=== PATIENT | female | born 2000 | race Caucasian/White ===

== ENCOUNTER 2022-08-05 03:06 | Inpatient (IN) ==
[2022-08-05 03:53] LABS: Appearance Urine Cloudy (Clear); Bacteria Urine Automated 2+ (Negative); Bilirubin Urine Negative (Negative); Blood Urine Negative (Negative); Color Urine Yellow; Epithelial Cell Urine Auto >30 /lpf (0-5); Glucose Urine UA Negative (Negative); Ketones Urine Negative (Negative); Leukocyte Esterase Urine 2+ (Negative); Nitrite Urine Negative (Negative); RBC Urine Automated 0-4 /hpf (0-4); Specific Gravity Urine 1.024 (1.000-1.030); Urobilinogen Urine Negative (Negative)
[2022-08-05 03:54] LABS: Protein Urine Trace (Negative)
[2022-08-05 04:12] LABS: Amphetamines+Metham, Urine Neg (Neg); Barbiturates, Urine Neg (Neg); Benzodiazepine, Urine Neg (Neg); Cocaine, Urine Neg (Neg); MDMA (Ecstacy), Urine Neg (Neg); Methadone, Urine Neg (Neg); Opiate, Urine Neg (Neg); Phencyclidine, Urine Neg (Neg)
[2022-08-05 04:21] LABS: Basophils # (auto) 0.02 K/uL (0-0.2); Basophils % (auto) 0.3 %; Eosinophils # (auto) 0.01 K/uL (0-0.50); Eosinophils % (auto) 0.1 %; Hemoglobin 12.8 g/dl (12.0-16.0); Immature Granulocytes # (auto) 0.02 K/uL (0.01-0.20); Immature Granulocytes % (auto) 0.3 %; Lymphocytes # (auto) 1.74 K/uL (1.2-3.4); Lymphocytes % (auto) 22.3 %; Mean Corpuscular Hgb Conc 34.6 g/dL (32.0-36.0); Mean Corpuscular Volume 89.6 fL (80.0-100.0); Mean Platelet Volume 9.4 fL (9.4-12.4); Monocytes # (auto) 0.42 K/uL (0.11-0.59); Monocytes % (auto) 5.4 %; Neutrophils # (auto) 5.58 K/uL (1.40-6.50); Neutrophils % (auto) 71.6 %; Platelet Count 308 K/uL (130-400); RDW Coefficient of Variation 12.3 % (11.5-14.5); RDW Standard Deviation 40.1 fL (36.4-46.3); Red Blood Count 4.13 M/uL (4.20-5.40); White Blood Count 7.79 K/ul (4.8-10.8)
[2022-08-05 04:25] LABS: Pregnancy Test, Urine Negative (Negative)
[2022-08-05 04:37] LABS: Albumin Level 4.4 gm/dl (3.4-5.0); Bilirubin,Total 0.3 mg/dl (0.2-1.0); Calcium 9.5 mg/dl (8.5-10.1); Potassium 3.7 mmol/L (3.5-5.1)
[2022-08-05 04:43] LABS: Albumin Globulin Ratio 1.2 (0.9-2); BUN Creatinine Ratio 19.1 (10-20); Creatinine Clr Calc Pharmacy 83.4 ml/min; Est GFR (African American) 108.1 ml/min; Est GFR (Non-African American) 93.3 ml/min; Globulin 3.8 gm/dl (2.5-4.0); Total Protein 8.2 gm/dl (6.0-8.3)
[2022-08-05 04:46] LABS: Acetaminophen < 3 ug/ml (10-30); Salicylate < 3.0 mg/dl (3.0-30)
[2022-08-05 04:56] LABS: Thyroid Stimulating Hormone 5.831 uIu/ml (0.300-4.500)
[2022-08-05 06:04] LABS: T4 Free Thyroxine 0.63 ng/dl (0.61-1.60)
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
--- NOTE | 2022-08-05 10:10 | Emergency Department Note ---
ED Visit Note ED Physician Sign Out Note: 21-year-old female arrives for evaluation of severe depression. Patient with suicidal ideation. Family is in [place]. She is here on a 201 voluntary basis for psychiatric placement. Medically evaluated and cleared by Dr Wells pending placement. Patient was excepted to [facility] on a voluntary basis no issues throughout the morning. Herberth Eldridge MD
[2022-08-05] MEDS ORDERED: BISMUTH SUBSALICYLATE LIQD 236 ML PO PRN (12:49)
[2022-08-05] MEDS ORDERED: SODIUM CHLORIDE 0.65% NA SOLN 45 ML (OCEAN) PRN (12:49)
[2022-08-05] MEDS ORDERED: ACETAMINOPHEN 325 MG TAB PO PRN (12:49)
[2022-08-05] MEDS ORDERED: MAGNESIUM HYDROXIDE SUSP 30 ML UDC PO PRN (12:49)
[2022-08-05] MEDS ORDERED: ALUMINUM/MAGNESIUM SUSP 30 ML UDC PO PRN (12:49)
[2022-08-05] MEDS ORDERED: hydrOXYzine HCl 25 MG TAB PO PRN ×2 (12:49)
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
[2022-08-05] MEDS ORDERED: FLUARIX QUADRIVALENT 0.5 ML SYR IM ONE (13:39)
[2022-08-05] MEDS: lamoTRIgine 100 MG TAB PO SCH ×2 (15:20→21:45)
[2022-08-05] MEDS: VENLAFAXINE HCL XR 150 MG CAPXR PO SCH (15:21)
[2022-08-05] MEDS: VENLAFAXINE HCL XR 75 MG CAPXR PO SCH (15:22)
[2022-08-05] MEDS: MIRTAZAPINE TAB 15 MG TAB PO SCH (21:43)
[2022-08-05] MEDS: PATIENT'S OWN ORAL CONTRACEPTIVE PO SCH (21:46)
--- NOTE | 2022-08-06 07:58 | Psychiatric Progress Note ---
Date of Service August 06, 2022 Impression / Recommendations Impression 08/06/22: Reviewed labs with pt. She appears to have evidence of UTI on UA and TSH is elevated with barely-normal T4. She reports much better sleep last night. On extended interview, reports clear manic episodes with extended periods of little sleep, frantic activity with racing thoughts, poor judgment, hypersexuality. She endorsed every item but 1 on MDQ. She reports failed trials of SSRI's and while she doesn't see any benefit on venlafaxine in terms of mood, she does think it's helped a lot with anxiety. She's somewhat phobic about possibility of becoming nauseated on medication though she doesn't recall this actually happening. She's happy with mirtazapine with sleep thus far and would like to continue venlafaxine. At this point I think history points toward Bipolar I d/o rather than Bipolar II , but in either case depressed mood would not likely respond well to antidepressant and would require a mood stabilizer. She's been tolerating lamotrigine without side effects but attributes no benefit to it. 08/05/22: The patient is a 21 year old woman and [employer] student with a history of BPAD type II, PTSD, self-harm, anxiety and PMDD who was admitted for worsening depression, anxiety and SI with potential plans. Diagnostically consistent with unspecified depression-most likely BPAD II with current major depressive episode with contribution from PMDD, NELLA with panic attacks, and PTSD. Possible cluster B component. TSH elevated but normal T4, no current suggestion for hypothyroidism component but should be monitored with likely TSH/free T4 recheck in the next 6-8 weeks. She is deemed in need of psychiatric hospitalization for diagnostic clarification, safety and stabilization, medication management and development of further coping skills. Discussed medication treatment options in detail including prazosin, mirtazapine, SNRIs/SSRIs. Discussed risks, benefits and alternatives. Patient would like to start and consented to mirtazapine for augmentation of depression, anxiety, help with sleep and appetite. Reviewed side effects including but not limited to:sedation, increased appetite, weight gain with mirtazapine; GI, STINSON, increased BP, sexual side effects, and counseled on black box warning of potential for emergence of or increased SI and need to let staff know should this occur or should they feel unsafe with venlafaxine; potential for fatal rash/Huynh Chance with lamictal and importance of reducing dose and not restarting until speaking with a provider if misses more than 3 days. (1) PMDD (premenstrual dysphoric disorder): (2) Generalized anxiety disorder with panic attacks: (3) Post traumatic stress disorder (PTSD): (4) Self-harming behavior: (5) TSH elevation: (6) Bipolar 1 disorder, depressed, severe: Plan 08/06/22: Continue venlafaxine ER 225 mg and mirtazapine 7.5 mg. Increase lamotrigine to 100 mg QAM & 150 mg QHS. Plan to start UTI Abx tomorrow (to avoid confounding if pt reports nausea if 2 med changes made simultaneously). 08/05/2022: The patient was admitted to the [facility] ([facility] mental health unit) on q15 min checks (behavioral with suicide precautions) for safety. The patient will participate in group, recreational, and milieu therapies and will be offered additional individual and family sessions as clinically appropriate. -start mirtazapine 7.5mg HS -Continue venlafaxine ER 225mg -lamictal 100mg BID -Mood Disorder Questionnaire -Jimmy BPD Screen Inventory Assets Strengths: supportive relationships, willing to get treatment, good rapport with outpatient providers, trauma survivor/resilient Needs: safety and stabilization, medication adjustment, additional coping skills, increased outpatient services Suicide Risk Level Suicide Risk Level: High-Moderate (q15 min suicide checks) (severe depression with SI with plan prior to admission but feels safe in the hospital, able to safety contract and agrees to let nursing/staff know should they develop plan, intent or feel unable to remain safe.) Suicide Risk Level Comments: High-Moderate due to severe depression with SI with plan prior to admission but feels safe in the hospital, able to safety contract and agrees to let nursing/staff know should they develop plan, intent or feel unable to remain safe. Risk Factors Assessment Male: No : Yes Do You Have Access To A Gun?: No Health Problems: No Mental Health Diagnoses: Yes Substance Use Disorders: No Previous Attempt: No Family History of Suicide: No Previous Psychiatric Hospitalization: No Protective Factors Assessment Employed: No Stable Relationships: Yes Supportive Family: Yes Good Rapport with Provider: Yes Interval History Chief Complaint "OK". Review of Systems Sleep Information Total Hours of Sleep: 7 Meal Information Percent Meal Consumed - Dinner: 85 Subjective Subjective Patient was seen & assessed and interval progress reviewed with treatment team nursing and social work Physical Exam Psychiatric Orientation: alert and oriented x 3 Apperance: appropriately dressed and appropriately groomed Eye Contact: good eye contact Motor Behavior: no abnormal motor movements Speech: normal rate/rhythm/volume of speech Affect: + depressed affect, + anxious affect and + tearful affect Mood: + depressed mood and + anxious mood Thought Process: goal directed thought process Thought Content: reality based without delusions Suicidal Thoughts: denies suicidal plan (none for here in hospital) and denies suicidal intent; + reports suicidal thoughts (intermittent thoughts ) Homicidal Thoughts: denies homicidal thoughts Hallucinations: no auditory hallucinations and no visual hallucinations Cognition: recent memory grossly intact, remote memory grossly intact, attention grossly intact and language grossly intact Estimated Intelligence: consistent with education level Insight: + fair insight Judgment: + limited judgement and + fair judgement Vital Signs (Past 24 Hours) Last Vital Signs Temp 36.9 C 08/06/22 06:47 Pulse 80 08/06/22 06:47 Resp 16 08/06/22 06:47 BP 126/84 08/06/22 06:48 Pulse Ox 99 08/05/22 13:23 O2 Del Method 08/05/22 13:23 Results & Data ([facility]) Current Inpatient Medications Current Inpatient Medications: Current Inpatient Medications Acetaminophen (Acetaminophen 325 Mg Tab) 650 mg PO Q4H PRN PRN Reason: Headache or Minor Fever Stop: 09/04/22 12:48 Al Hydrox/Mg Hydrox/Simethicone (Aluminum/Magnesium Susp 30 Ml Udc) 30 ml PO Q4H PRN PRN Reason: GI Upset Stop: 09/04/22 12:48 Bismuth Subsalicylate (Bismuth Subsalicylate Liqd 236 Ml) 15 ml PO PRN PRN PRN Reason: Loose Stool Stop: 09/04/22 12:48 Hydroxyzine HCl (Hydroxyzine Hcl 25 Mg Tab) 50 mg PO HSZ PRN PRN Reason: Insomnia Stop: 09/04/22 12:48 Hydroxyzine HCl (Hydroxyzine Hcl 25 Mg Tab) 25 mg PO Q4H PRN PRN Reason: Anxiety Stop: 09/04/22 12:48 Lamotrigine (Lamotrigine 100 Mg Tab) 100 mg PO BID DEDRICK Stop: 09/04/22 13:54 Last Admin: 08/05/22 21:45 Dose: 100 mg Magnesium Hydroxide (Magnesium Hydroxide Susp 30 Ml Udc) 30 ml PO DAILY PRN PRN Reason: Constipation Stop: 09/04/22 12:48 Mirtazapine (Mirtazapine Tab 15 Mg Tab) 7.5 mg PO HS DEDRICK Stop: 09/04/22 21:59 Last Admin: 08/05/22 21:43 Dose: 7.5 mg Miscellaneous (Patient's Own Oral Contraceptive) 1 each PO HS DEDRICK Stop: 09/04/22 21:59 Last Admin: 08/05/22 21:46 Dose: 1 each Sodium Chloride (Sodium Chloride 0.65% Na Soln 45 Ml ([place])) 1 - 2 sprays NA PRN PRN PRN Reason: Nasal Dryness/Congestion Stop: 09/04/22 12:48 Venlafaxine HCl (Venlafaxine Hcl Xr 75 Mg Capxr) 75 mg PO DAILY DEDRICK Stop: 09/04/22 13:59 Last Admin: 08/05/22 15:22 Dose: 75 mg Venlafaxine HCl (Venlafaxine Hcl Xr 150 Mg Capxr) 150 mg PO DAILY DEDRICK Stop: 09/04/22 13:59 Last Admin: 08/05/22 15:21 Dose: 150 mg Mental Health & Subst Abuse Tx Psychiatrist Name of Psychiatrist: [facility]- Dr. Brooks Psychiatrist's Psychiatric Appointment Comment: telehealth Therapist Name of Therapist: BESS Singh Therapy Appointment Comment: telehealth Shield Operator Name of Shield Operator: None Post Discharge Appointments Primary Care Physician Name Of Family Doctor/PCP: [facility] Primary Care Provider Appointment Comment: [facility], [place] Contact Information Discharge Discharge Address: [address] [place] [id number]
[2022-08-06] MEDS: VENLAFAXINE HCL XR 75 MG CAPXR PO SCH (09:49)
[2022-08-06] MEDS: VENLAFAXINE HCL XR 150 MG CAPXR PO SCH (09:49)
[2022-08-06] MEDS: lamoTRIgine 100 MG TAB PO SCH ×2 (09:49→21:47)
[2022-08-06] MEDS: PATIENT'S OWN ORAL CONTRACEPTIVE PO SCH (21:30)
[2022-08-06] MEDS: MIRTAZAPINE TAB 15 MG TAB PO SCH (21:31)
[2022-08-06] MEDS: lamoTRIgine 25 MG TAB PO SCH (21:43)
[2022-08-07] MEDS: lamoTRIgine 100 MG TAB PO SCH ×2 (08:59→21:59)
[2022-08-07] MEDS: VENLAFAXINE HCL XR 75 MG CAPXR PO SCH (08:59)
[2022-08-07] MEDS: VENLAFAXINE HCL XR 150 MG CAPXR PO SCH (08:59)
[2022-08-07] MEDS ORDERED: lamoTRIgine 100 MG TAB PO SCH (09:00)
--- NOTE | 2022-08-07 12:50 | Psychiatric Progress Note ---
Date of Service August 07, 2022 Impression / Recommendations Impression 08/07/22: Has remained pleasant and appropriate and participated well in the program. Experienced no nausea (which she'd feared) following yesterday's increase in lamotrigine and would like to proceed with planned antibiotic for presumptive UTI. Affect remains depressed and she continues to endorse depressed mood but evidences motivation for treatment. Worries that "the Remeron might have stopped working" (after 2 doses) because she slept less well last night (which is confirmed by nursing observations). 08/06/22: Reviewed labs with pt. She appears to have evidence of UTI on UA and TSH is elevated with barely-normal T4. She reports much better sleep last night. On extended interview, reports clear manic episodes with extended periods of little sleep, frantic activity with racing thoughts, poor judgment, hypersexuality. She endorsed every item but 1 on MDQ. She reports failed trials of SSRI's and while she doesn't see any benefit on venlafaxine in terms of mood, she does think it's helped a lot with anxiety. She's somewhat phobic about possibility of becoming nauseated on medication though she doesn't recall this actually happening. She's happy with mirtazapine with sleep thus far and would like to continue venlafaxine. At this point I think history points toward Bipolar I d/o rather than Bipolar II, but in either case depressed mood would not likely respond well to antidepressant and would require a mood stabilizer. She's been tolerating lamotrigine without side effects but attributes no benefit to it. 08/05/22: The patient is a 21 year old woman and [employer] student with a history of BPAD type II, PTSD, self-harm, anxiety and PMDD who was admitted for worsening depression, anxiety and SI with potential plans. Diagnostically consistent with unspecified depression-most likely BPAD II with current major depressive episode with contribution from PMDD, NELLA with panic attacks, and PTSD. Possible cluster B component. TSH elevated but normal T4, no current suggestion for hypothyroid ism component but should be monitored with likely TSH/free T4 recheck in the next 6-8 weeks. She is deemed in need of psychiatric hospitalization for diagnostic clarification, safety and stabilization, medication management and development of further coping skills. Discussed medication treatment options in detail including prazosin, mirtazapine, SNRIs/SSRIs. Discussed risks, benefits and alternatives. Patient would like to start and consented to mirtazapine for augmentation of depression, anxiety, help with sleep and appetite. Reviewed side effects including but not limited to:sedation, increased appetite, weight gain with mirtazapine; GI, STINSON, increased BP, sexual side effects, and counseled on black box warning of potential for emergence of or increased SI and need to let staff know should this occur or should they feel unsafe with venlafaxine; potential for fatal rash/Huynh Chance with lamictal and importance of reducing dose and not restarting until speaking with a provider if misses more than 3 days. (1) PMDD (premenstrual dysphoric disorder): (2) Generalized anxiety disorder with panic attacks: (3) Post traumatic stress disorder (PTSD): (4) Self-harming behavior: (5) TSH elevation: (6) Bipolar 1 disorder, depressed, severe: Plan 08/07/22: Start SMX/TMP as planned for presumptive UTI. Will continue mirtaza pine at current dose since I doubt tachyphylaxis after 2 doses. Continue lamotrigine at new dose of 100 mg QAM & 150 mg QPM, encourage further increase to 150 mg BID. Continue venlafaxine XR 225 mg daily. 08/06/22: Continue venlafaxine ER 225 mg and mirtazapine 7.5 mg. Increase lamotrigine to 100 mg QAM & 150 mg QHS. Plan to start UTI Abx tomorrow (to avoid confounding if pt reports nausea if 2 med changes made simultaneously). 08/05/2022: The patient was admitted to the [facility] ([facility] mental health unit) on q15 min checks (behavioral with suicide precautions) for safety. The patient will participate in group, recreational, and milieu therapies and will be offered additional individual and family sessions as clinically appropriate. -start mirtazapine 7.5mg HS -Continue venlafaxine ER 225mg -lamictal 100mg BID -Mood Disorder Questionnaire -Jimmy BPD Screen Inventory Assets Strengths: supportive relationships, willing to get treatment, good rapport with outpatient providers, trauma survivor/resilient Needs: safety and stabilization, medication adjustment, additional coping skills, increased outpatient services Suicide Risk Level Suicide Risk Level: High-Moderate (q15 min suicide checks) (severe depression with SI with plan prior to admission but feels safe in the hospital, able to safety contract and agrees to let nursing/staff know should they develop plan, intent or feel unable to remain safe.) Suicide Risk Level Comments: High-Moderate due to severe depression with SI with plan prior to admission but feels safe in the hospital, able to safety contract and agrees to let nursing/staff know should they develop plan, intent or feel unable to remain safe. Risk Factors Assessment Male: No : Yes Do You Have Access To A Gun?: No Health Problems: No Mental Health Diagnoses: Yes Substance Use Disorders: No Previous Attempt: No Family History of Suicide: No Previous Psychiatric Hospitalization: No Protective Factors Assessment Employed: No Stable Relationships: Yes Supportive Family: Yes Good Rapport with Provider: Yes Interval History Chief Complaint "OK I guess". Review of Systems Sleep Information Total Hours of Sleep: 5 Meal Information Percent Meal Consumed - Breakfast: 80 Percent Meal Consumed - Lunch: 75 Percent Meal Consumed - Dinner: 75 Subjective Subjective Patient was seen & assessed and interval progress reviewed with treatment team nursing and social work Physical Exam Psychiatric Orientation: alert and oriented x 3 Apperance: appropriately dressed and appropriately groomed Eye Contact: good eye contact Motor Behavior: no abnormal motor movements Speech: normal rate/rhythm/volume of speech Affect: + depressed affect and + anxious affect; no tearful affect Mood: + depressed mood and + anxious mood Thought Process: goal directed thought process Thought Content: reality based without delusions Suicidal Thoughts: denies suicidal plan (none for here in hospital) and denies suicidal intent; + reports suicidal thoughts (intermittent thoughts ) Homicidal Thoughts: denies homicidal thoughts Hallucinations: no auditory hallucinations and no visual hallucinations Cognition: recent memory grossly intact, remote memory grossly intact, attention grossly intact and language grossly intact Estimated Intelligence: consistent with education level Insight: + fair insight Judgment: + limited judgement and + fair judgement Vital Signs (Past 24 Hours) Last Vital Signs Temp 37.1 C 08/07/22 06:24 Pulse 97 H 08/07/22 06:25 Resp 18 08/07/22 06:24 BP 111/77 08/07/22 06:25 Pulse Ox 99 08/05/22 13:23 O2 Del Method 08/05/22 13:23 Results & Data ([facility]) Current Inpatient Medications Current Inpatient Medications: Current Inpatient Medications Acetaminophen (Acetaminophen 325 Mg Tab) 650 mg PO Q4H PRN PRN Reason: Headache or Minor Fever Stop: 09/04/22 12:48 Al Hydrox/Mg Hydrox/Simethicone (Aluminum/Magnesium Susp 30 Ml Udc) 30 ml PO Q4H PRN PRN Reason: GI Upset Stop: 09/04/22 12:48 Bismuth Subsalicylate (Bismuth Subsalicylate Liqd 236 Ml) 15 ml PO PRN PRN PRN Reason: Loose Stool Stop: 09/04/22 12:48 Hydroxyzine HCl (Hydroxyzine Hcl 25 Mg Tab) 50 mg PO HSZ PRN PRN Reason: Insomnia Stop: 09/04/22 12:48 Hydroxyzine HCl (Hydroxyzine Hcl 25 Mg Tab) 25 mg PO Q4H PRN PRN Reason: Anxiety Stop: 09/04/22 12:48 Lamotrigine (Lamotrigine 100 Mg Tab) 100 mg PO BID DEDRICK Stop: 09/05/22 20:59 Last Admin: 08/07/22 08:59 Dose: 100 mg Lamotrigine (Lamotrigine 25 Mg Tab) 50 mg PO HS DEDRICK Stop: 09/05/22 21:59 Last Admin: 08/06/22 21:43 Dose: 50 mg Magnesium Hydroxide (Magnesium Hydroxide Susp 30 Ml Udc) 30 ml PO DAILY PRN PRN Reason: Constipation Stop: 09/04/22 12:48 Mirtazapine (Mirtazapine Tab 15 Mg Tab) 7.5 mg PO HS DEDRICK Stop: 09/04/22 21:59 Last Admin: 08/06/22 21:31 Dose: 7.5 mg Miscellaneous (Patient's Own Oral Contraceptive) 1 each PO HS DEDRICK Stop: 09/04/22 21:59 Last Admin: 08/06/22 21:30 Dose: 1 each Sodium Chloride (Sodium Chloride 0.65% Na Soln 45 Ml ([place])) 1 - 2 sprays NA PRN PRN PRN Reason: Nasal Dryness/Congestion Stop: 09/04/22 12:48 Venlafaxine HCl (Venlafaxine Hcl Xr 75 Mg Capxr) 75 mg PO DAILY DEDRICK Stop: 09/04/22 13:59 Last Admin: 08/07/22 08:59 Dose: 75 mg Venlafaxine HCl (Venlafaxine Hcl Xr 150 Mg Capxr) 150 mg PO DAILY DEDRICK Stop: 09/04/22 13:59 Last Admin: 08/07/22 08:59 Dose: 150 mg Mental Health & Subst Abuse Tx Psychiatrist Name of Psychiatrist: [facility]- Dr. Brooks Psychiatrist's Psychiatric Appointment Comment: telehealth Therapist Name of Therapist: BESS Singh Therapy Appointment Comment: telehealth Medical Billing Representative Name of Medical Billing Representative: None Post Discharge Appointments Primary Care Physician Name Of Family Doctor/PCP: [facility] Primary Care Provider Appointment Comment: [facility], [place], [place] Other #1: Name of Aftercare Appointment: [facility] Phone Number of Aftercare Appointment: [phone] Aftercare Appointment Comment: zoom link will be sent to [employer] email #2: Name of Aftercare Appointment: [facility] Phone Number of Aftercare Appointment: [phone] Aftercare Appointment Comment: telehealth Contact Information Discharge Discharge Address: [facility] [place] [address]
[2022-08-07] MEDS: SULFAMETHOXAZOLE/TRIMETHOPRIM DS 800/160MG TAB PO SCH (20:42)
[2022-08-07] MEDS: lamoTRIgine 25 MG TAB PO SCH (22:00)
[2022-08-07] MEDS: MIRTAZAPINE TAB 15 MG TAB PO SCH (22:00)
[2022-08-07] MEDS: PATIENT'S OWN ORAL CONTRACEPTIVE PO SCH (22:00)
--- NOTE | 2022-08-08 08:05 | Psychiatric Progress Note ---
Date of Service August 08, 2022 Impression / Recommendations Impression 08/08/22: No longer reports or endorses suicidal thoughts, but does continue to report significant depressed mood. Continues to tolerate increased lamotrigine and would like to proceed with increase to (my originally-recommended) 300 mg/day. Tolerated initiation of sulfamethoxizole/trimethoprim. Slept better last night, no longer fears mirtazapine won't help. Her parents have indicated an intention of coming to the area and staying nearby for a while. Pt is somewhat hesitant about this - she appreciates the concern and values the help offered, but is concerned about the potential for their being intrusive or controlling. She would prefer to spend more time immediately following discharge with her boyfriend than with them, though she notes that her parents like her boyfriend. Pt wishes to consider discharge tomorrow, one explicit factor being is that it's Baeza's Day. I noted that we're actively adjusting medications and that her symptoms at admission were quite severe. Since the Baeza's issue is really that her boyfriend wanted to know if he should schedule work tomorrow, I suggested that she should tell him to plan to work. Depending on how family and discharge planning meetings go and contingent on no new or worsened problems, we could consider discharge the day after tomorrow. 08/07/22: Has remained pleasant and appropriate and participated well in the program. Experienced no nausea (which she'd feared) following yesterday's increase in lamotrigine and would like to proceed with planned antibiotic for presumptive UTI. Affect remains depressed and she continues to endorse depressed mood but evidences motivation for treatment. Worries that "the Remeron might have stopped working" (after 2 doses) because she slept less well last night (which is confirmed by nursing observations). 08/06/22: Reviewed labs with pt. She appears to have evidence of UTI on UA and TSH is elevated with barely-normal T4. She reports much better sleep last night. On extended interview, reports clear manic episodes with extended periods of little sleep, frantic activity with racing thoughts, poor judgment, hypersexuality. She endorsed every item but 1 on MDQ. She reports failed trials of SSRI's and while she doesn't see any benefit on venlafaxine in terms of mood, she does think it's helped a lot with anxiety. She's somewhat phobic about possibility of becoming nauseated on medication though she doesn't recall this actually happening. She's happy with mirtazapine with sleep thus far and would like to continue venlafaxine. At this point I think history points toward Bipolar I d/o rather than Bipolar II, but in either case depressed mood would not likely respond well to antidepressant and would require a mood stabilizer. She's been tolerating lamotrigine without side effects but attributes no benefit to it. 08/05/22: The patient is a 21 year old woman and [employer] student with a history of BPAD type II, PTSD, self-harm, anxiety and PMDD who was admitted for worsening depression, anxiety and SI with potential plans. Diagnostically consistent with unspecified depression-most likely BPAD II with current major depressive episode with contribution from PMDD, NELLA with panic attacks, and PTSD. Possible cluster B component. TSH elevated but normal T4, no current suggestion for hypothyroidism component but should be monitored with likely TSH/free T4 recheck in the next 6-8 weeks. She is deemed in need of psychiatric hospitalization for diagnostic clarification, safety and stabilization, medication management and development of further coping skills. Discussed medication treatment options in detail including prazosin, mirtazapine, SNRIs/SSRIs. Discussed risks, benefits and alternatives. Patient would like to start and consented to mirtazapine for augmentation of depression, anxiety, help with sleep and appetite. Reviewed side effects including but not limited to:sedation, increased appetite, weight gain with mirtazapine; GI, STINSON, increased BP, sexual side effects, and counseled on black box warning of potential for emergence of or increased SI and need to let staff know should this occur or should they feel unsafe with venlafaxine; potential for fatal ra sh/Huynh Chance with lamictal and importance of reducing dose and not restarting until speaking with a provider if misses more than 3 days. (1) PMDD (premenstrual dysphoric disorder): (2) Generalized anxiety disorder with panic attacks: (3) Post traumatic stress disorder (PTSD): (4) Self-harming behavior: (5) TSH elevation: (6) Bipolar 1 disorder, depressed, severe: Plan 08/08/22: Increase lamotrigine to 150 mg BID, with 50 mg now following 100 mg dose administered a short time ago. (While this could appear to be a very rapid rate of increase, my initial recommendation had been to increase from 200 mg/day to 300 mg/day 2 days ago). Continue venlafaxine XR 225 mg daily (primarily for anxiety and panic). Continue mirtazapine 7.5 mg QHS (primarily for sleep). Continue sulfamethoxizole/trimethoprim 800/160 mg BID for 4 more days. 08/07/22: Start SMX/TMP as planned for presumptive UTI. Will continue mirtazapine at current dose since I doubt tachyphylaxis after 2 doses. Continue lamotrigine at new dose of 100 mg QAM & 150 mg QPM, encourage further increase to 150 mg BID. Continue venlafaxine XR 225 mg daily. 08/06/22: Continue venlafaxine ER 225 mg and mirtazapine 7.5 mg. Increase lamotrigine to 100 mg QAM & 150 mg QHS. Plan to start UTI Abx tomorrow (to avoid confounding if pt reports nausea if 2 med changes made simultaneously). 08/05/2022: The patient was admitted to the [facility] ([facility]) on q15 min checks (behavioral with suicide precautions) for safety. The patient will participate in group, recreational, and milieu therapies and will be offered additional individual and family sessions as clinically appropriate. -start mirtazapine 7.5mg HS -Continue venlafaxine ER 225mg -lamictal 100mg BID -Mood Disorder Questionnaire -Jimmy BPD Screen Inventory Assets Strengths: supportive relationships, willing to get treatment, good rapport with outpatient providers, trauma survivor/resilient Needs: safety and stabilization, medication adjustment, additional coping skills, increased outpatient services Suicide Risk Level Suicide Risk Level: High-Moderate (q15 min suicide checks) (severe depression with SI with plan prior to admission but feels safe in the hospital, able to safety contract and agrees to let nursing/staff know should they develop plan, intent or feel unable to remain safe.) Suicide Risk Level Comments: High-Moderate due to severe depression with SI with plan prior to admission but feels safe in the hospital, able to safety contract and agrees to let nursing/staff know should they develop plan, intent or feel unable to remain safe. Risk Factors Assessment Male: No : Yes Do You Have Access To A Gun?: No Health Problems: No Mental Health Diagnoses: Yes Substance Use Disorders: No Previous Attempt: No Family History of Suicide: No Previous Psychiatric Hospitalization: No Protective Factors Assessment Employed: No Stable Relationships: Yes Supportive Family: Yes Good Rapport with Provider: Yes Interval History Identifying Information 21 y/o F admitted with depressed mood and suicidal thoughts and a history of probably manic episodes (or certainly at least hypomania) Chief Complaint "Getting tired of being here". Review of Systems Sleep Information Total Hours of Sleep: 6.5 Meal Information Percent Meal Consumed - Breakfast: 80 Percent Meal Consumed - Lunch: 100 Percent Meal Consumed - Dinner: 80 Nutrition Comment: per nursing documentation Subjective Subjective Patient was seen & assessed and interval progress reviewed with treatment team nursing and social work Physical Exam Psychiatric Orientation: alert and oriented x 3 Apperance: appropriately dressed and appropriately groomed Eye Contact: good eye contact Motor Behavior: no abnormal motor movements Speech: normal rate/rhythm/volume of speech Affect: + depressed affect and + anxious affect; no tearful affect Mood: + depressed mood and + anxious mood Thought Process: goal directed thought process Thought Content: reality based without delusions Suicidal Thoughts: denies suicidal thoughts, denies suicidal plan and denies suicidal intent Homicidal Thoughts: denies homicidal thoughts Hallucinations: no auditory hallucinations and no visual hallucinations Cognition: recent memory grossly intact, remote memory grossly intact, attention grossly intact and language grossly intact Estimated Intelligence: consistent with education level Insight: + fair insight Judgment: + fair judgement Vital Signs (Past 24 Hours) Last Vital Signs Temp 37.1 C 08/08/22 06:24 Pulse 111 H 08/08/22 06:26 Resp 16 08/08/22 06:24 BP 122/79 08/08/22 06:26 Pulse Ox 99 08/05/22 13:23 O2 Del Method 08/05/22 13:23 Results & Data ([facility]) Current Inpatient Medications Current Inpatient Medications: Current Inpatient Medications Acetaminophen (Acetaminophen 325 Mg Tab) 650 mg PO Q4H PRN PRN Reason: Headache or Minor Fever Stop: 09/04/22 12:48 Al Hydrox/Mg Hydrox/Simethicone (Aluminum/Magnesium Susp 30 Ml Udc) 30 ml PO Q4H PRN PRN Reason: GI Upset Stop: 09/04/22 12:48 Bismuth Subsalicylate (Bismuth Subsalicylate Liqd 236 Ml) 15 ml PO PRN PRN PRN Reason: Loose Stool Stop: 09/04/22 12:48 Hydroxyzine HCl (Hydroxyzine Hcl 25 Mg Tab) 50 mg PO HSZ PRN PRN Reason: Insomnia Stop: 09/04/22 12:48 Hydroxyzine HCl (Hydroxyzine Hcl 25 Mg Tab) 25 mg PO Q4H PRN PRN Reason: Anxiety Stop: 09/04/22 12:48 Lamotrigine (Lamotrigine 100 Mg Tab) 100 mg PO BID DEDRICK Stop: 09/05/22 20:59 Last Admin: 08/07/22 21:59 Dose: 100 mg Lamotrigine (Lamotrigine 25 Mg Tab) 50 mg PO HS DEDRICK Stop: 09/05/22 21:59 Last Admin: 08/07/22 22:00 Dose: 50 mg Magnesium Hydroxide (Magnesium Hydroxide Susp 30 Ml Udc) 30 ml PO DAILY PRN PRN Reason: Constipation Stop: 09/04/22 12:48 Mirtazapine (Mirtazapine Tab 15 Mg Tab) 7.5 mg PO HS DEDRICK Stop: 09/04/22 21:59 Last Admin: 08/07/22 22:00 Dose: 7.5 mg Miscellaneous (Patient's Own Oral Contraceptive) 1 each PO HS DEDRICK Stop: 09/04/22 21:59 Last Admin: 08/07/22 22:00 Dose: 1 each Sodium Chloride (Sodium Chloride 0.65% Na Soln 45 Ml ([place])) 1 - 2 sprays NA PRN PRN PRN Reason: Nasal Dryness/Congestion Stop: 09/04/22 12:48 Trimethoprim/Sulfamethoxazole (Sulfamethoxazole/Trimethoprim Ds 800/160mg Tab) 1 tab PO Q12 DEDRICK Stop: 08/12/22 20:59 Last Admin: 08/07/22 20:42 Dose: 1 tab Venlafaxine HCl (Venlafaxine Hcl Xr 75 Mg Capxr) 75 mg PO DAILY DEDRICK Stop: 09/04/22 13:59 Last Admin: 08/07/22 08:59 Dose: 75 mg Venlafaxine HCl (Venlafaxine Hcl Xr 150 Mg Capxr) 150 mg PO DAILY DEDRICK Stop: 09/04/22 13:59 Last Admin: 08/07/22 08:59 Dose: 150 mg Mental Health & Subst Abuse Tx Psychiatrist Name of Psychiatrist: [facility]- Dr. Brooks Psychiatrist's Psychiatric Appointment Comment: telehealth Therapist Name of Therapist: BESS Singh Therapist's Date of Therapist Appointment: 08/10/2022 Time of Therapist Appointment: 4pm Therapy Appointment Comment: telehealth Premium Note Interest Calculator Clerk Name of Premium Note Interest Calculator Clerk: None Post Discharge Appointments Primary Care Physician Name Of Family Doctor/PCP: JAMES- Gynocology Primary Care Provider Appointment Comment: [id number] [place] [address] Other #1: Name of Aftercare Appointment: [facility] Phone Number of Aftercare Appointment: [phone] Aftercare Appointment Comment: zoom link will be sent to [employer] email #2: Name of Aftercare Appointment: [facility] Phone Number of Aftercare Appointment: [phone] Aftercare Appointment Comment: telehealth Contact Information Discharge Discharge Address: [address] [place] [address], [place] [address]
[2022-08-08] MEDS: lamoTRIgine 100 MG TAB PO SCH (08:34)
[2022-08-08] MEDS: VENLAFAXINE HCL XR 75 MG CAPXR PO SCH (08:35)
[2022-08-08] MEDS: VENLAFAXINE HCL XR 150 MG CAPXR PO SCH (08:35)
[2022-08-08] MEDS: SULFAMETHOXAZOLE/TRIMETHOPRIM DS 800/160MG TAB PO SCH ×2 (08:35→21:22)
[2022-08-08] MEDS ORDERED: lamoTRIgine 25 MG TAB PO ONE (11:01)
[2022-08-08] MEDS: PATIENT'S OWN ORAL CONTRACEPTIVE PO SCH (21:21)
[2022-08-08] MEDS: MIRTAZAPINE TAB 15 MG TAB PO SCH (21:22)
[2022-08-08] MEDS: lamoTRIgine 25 MG TAB PO SCH (21:23)
--- NOTE | 2022-08-09 09:20 | Psychiatric Progress Note ---
Date of Service August 09, 2022 Impression / Recommendations Impression 08/09/22: Despite extensive discussion of the possibility of discharge tomorrow (see note 08/08/22), over the course of the day yesterday voiced to others that the plan was for discharge today. Each time she was reminded of the plan for possible discharge tomorrow. Today, pt repeats this with me and insists she's currently symptom-free. I shared my doubts that her medication works that quickly and suggested that much of the reason she's felt better is likely the milieu on the unit, which of course will no longer be available following discharge. She does appear to have tolerated recent medication changes, including 50% increase in lamotrigine dose from 100 mg BID to 150 mg BID (3 doses thus far) and addition of SMX/TMP to her existing venlafaxine XR 225 mg daily. Reviewed that the lamotrigine is the med she's taking for depression, since it seems clear it's bipolar depression and therefore unlikely to respond to antidepressants. Reviewed that the venlafaxine XR, despite typically being referred to as an antidepressant is in her case for generalized anxiety, panic, and PTSD symptoms. I've told pt that I'd really like to ensure she tolerates lamotrigine 300 mg/day for at least 2 days prior to discharge and that that criterion could be met if she were discharged a couple of hours after this evening's dose. She voiced that discharge that late seemed a bit silly, to which I agreed. 08/08/22: No longer reports or endorses suicidal thoughts, but does continue to report significant depressed mood. Continues to tolerate increased lamotrigine and would like to proceed with increase to (my originally-recommended) 300 mg/day. Tolerated initiation of sulfamethoxizole/trimethoprim. Slept better last night, no longer fears mirtazapine won't help. Her parents have indicated an intention of coming to the area and staying nearby for a while. Pt is somewhat hesitant about this - she appreciates the concern and values the help offered, but is concerned about the potential for their being intrusive or controlling. She would prefer to spend more time immediately following discharge with her boyfriend than with them, though she notes that her parents like her boyfriend. Pt wishes to consider discharge tomorrow, one explicit factor being is that it's Felisha's Day. I noted that we're actively adjusting medications and that her symptoms at admission were quite severe. Since the Felisha's issue is really that her boyfriend wanted to know if he should schedule work tomorrow, I suggested that she should tell him to plan to work. Depending on how family and discharge planning meetings go and contingent on no new or worsened problems, we could consider discharge the day after tomorrow. 08/07/22: Has remained pleasant and appropriate and participated well in the program. Experienced no nausea (which she'd feared) following yesterday's increase in lamotrigine and would like to proceed with planned antibiotic for presumptive UTI. Affect remains depressed and she continues to endorse depressed mood but evidences motivation for treatment. Worries that "the Remeron might have stopped working" (after 2 doses) because she slept less well last night (which is confirmed by nursing observations). 08/06/22: Reviewed labs with pt. She appears to have evidence of UTI on UA and TSH is elevated with barely-normal T4. She reports much better sleep last night. On extended interview, reports clear manic episodes with extended periods of little sleep, frantic activity with racing thoughts, poor judgment, hypersexuality. She endorsed every item but 1 on MDQ. She reports failed trials of SSRI's and while she doesn't see any benefit on venlafaxine in terms of mood, she does think it's helped a lot with anxiety. She's somewhat phobic about possibility of becoming nauseated on medication though she doesn't recall this actually happening. She's happy with mirtazapine with sleep thus far and would like to continue venlafaxine. At this point I think history points toward Bipolar I d/o rather than Bipolar II, but in either case depressed mood would not likely respond well to antidepressant and would require a mood stabilizer. She's been tolerating lamotrigine without side effects but attributes no benefit to it. 08/05/22: The patient is a 21 year old woman and [employer] student with a history of BPAD type II, PTSD, self-harm, anxiety and PMDD who was admitted for worsening depression, anxiety and SI with potential plans. Diagnostically consistent with unspecified depression-most likely BPAD II with current major depressive episode with contribution from PMDD, NELLA with panic attacks, and PTSD. Possible cluster B component. TSH elevated but normal T4, no current suggestion for hypothyroidism component but should be monitored with likely TSH/free T4 recheck in the next 6-8 weeks. She is deemed in need of psychiatric hospitalization for diagnostic clarification, safety and stabilization, medication management and development of further coping skills. Discussed medication treatment options in detail including prazosin, mirtazapine, SNRIs/SSRIs. Discussed risks, benefits and alternatives. Patient would like to start and consented to mirtazapine for augmentation of depression, anxiety, help with sleep and appetite. Reviewed side effects including but not limited to:sedation, increased appetite, weight gain with mirtazapine; GI, STINSON, increased BP, sexual side effects, and counseled on black box warning of potential for emergence of or increased SI and need to let staff know should this occur or should they feel unsafe with venlafaxine; potential for fatal rash/Huynh Chance with lamictal and importance of reducing dose and not restarting until speaking with a provider if misses more than 3 days. (1) PMDD (premenstrual dysphoric disorder): (2) Generalized anxiety disorder with panic attacks: (3) Post traumatic stress disorder (PTSD): (4) Self-harming behavior: (5) TSH elevation: (6) Bipolar 1 disorder, depressed, severe: Plan 08/09/22: Continue lamotrigine 150 mg BID (for mood stabilization and depression) Continue venlafaxine XR 225 mg daily (primarily for anxiety and panic). Continue mirtazapine 7.5 mg QHS (primarily for sleep). Continue sulfamethoxizole/trimethoprim 800/160 mg BID for 3 more days. Anticipate discharge late this evening (at least 2 hr after lamotrigine), or tomorrow AM. 08/08/22: Increase lamotrigine to 150 mg BID, with 50 mg now following 100 mg dose administered a short time ago. (While this could appear to be a very rapid rate of increase, my initial recommendation had been to increase from 200 mg/day to 300 mg/day 2 days ago). Continue venlafaxine XR 225 mg daily (primarily for anxiety and panic). Continue mirtazapine 7.5 mg QHS (primarily for sleep). Continue sulfamethoxizole/trimethoprim 800/160 mg BID for 4 more days. 08/07/22: Start SMX/TMP as planned for presumptive UTI. Will continue mirtazapine at current dose since I doubt tachyphylaxis after 2 doses. Continue lamotrigine at new dose of 100 mg QAM & 150 mg QPM, encourage further increase to 150 mg BID. Continue venlafaxine XR 225 mg daily. 08/06/22: Continue venlafaxine ER 225 mg and mirtazapine 7.5 mg. Increase lamotrigine to 100 mg QAM & 150 mg QHS. Plan to start UTI Abx tomorrow (to avoid confounding if pt reports nausea if 2 med changes made simultaneously). 08/05/2022: The patient was [facility] on q15 min checks (behavioral with suicide precautions) for safety. The patient will participate in group, recreational, and milieu therapies and will be offered additional individual and family sessions as clinically appropriate. -start mirtazapine 7.5mg HS -Continue venlafaxine ER 225mg -lamictal 100mg BID -Mood Disorder Questionnaire -Jimmy BPD Screen Inventory Assets Strengths: supportive relationships, willing to get treatment, good rapport with outpatient providers, trauma survivor/resilient Needs: safety and stabilization, medication adjustment, additional coping skills, increased outpatient services Suicide Risk Level Suicide Risk Level: Moderate (q15 min suicide checks) Risk Factors Assessment Male: No : Yes Do You Have Access To A Gun?: No Health Problems: No Mental Health Diagnoses: Yes Substance Use Disorders: No Previous Attempt: No Family History of Suicide: No Previous Psychiatric Hospitalization: No Protective Factors Assessment Employed: No Stable Relationships: Yes Supportive Family: Yes Good Rapport with Provider: Yes Interval History Identifying Information 21 y/o F admitted with depressed mood and suicidal thoughts and a history of probably manic episodes (or certainly at least hypomania) Chief Complaint "I really think I can go home today". Review of Systems Sleep Information Total Hours of Sleep: 6 Meal Information Percent Meal Consumed - Breakfast: 90 Percent Meal Consumed - Lunch: 90 Percent Meal Consumed - Dinner: 80 Nutrition Comment: per nursing documentation Subjective Subjective Patient was seen & assessed and interval progress reviewed with [treatment team] [nursing and social work] Physical Exam Psychiatric Orientation: alert and oriented x 3 Apperance: appropriately dressed and appropriately groomed Eye Contact: good eye contact Motor Behavior: no abnormal motor movements Speech: normal rate/rhythm/volume of speech Affect: + depressed affect and + anxious affect; no tearful affect Mood: + depressed mood and + anxious mood Thought Process: goal directed thought process Thought Content: reality based without delusions Suicidal Thoughts: denies suicidal thoughts, denies suicidal plan and denies suicidal intent Homicidal Thoughts: denies homicidal thoughts Hallucinations: no auditory hallucinations and no visual hallucinations Cognition: recent memory grossly intact, remote memory grossly intact, attention grossly intact and language grossly intact Estimated Intelligence: consistent with education level Insight: + fair insight Judgment: + limited judgement and + fair judgement Vital Signs (Past 24 Hours) Last Vital Signs Temp 37.1 C 08/09/22 06:39 Pulse 102 H 08/09/22 06:39 Resp 16 08/09/22 06:39 BP 111/71 08/09/22 06:39 Pulse Ox 99 08/05/22 13:23 O2 Del Method Room Air 08/05/22 13:23 Results & Data ([facility]) Current Inpatient Medications Current Inpatient Medications: Current Inpatient Medications Acetaminophen (Acetaminophen 325 Mg Tab) 650 mg PO Q4H PRN PRN Reason: Headache or Minor Fever Stop: 09/04/22 12:48 Al Hydrox/Mg Hydrox/Simethicone (Aluminum/Magnesium Susp 30 Ml Udc) 30 ml PO Q4H PRN PRN Reason: GI Upset Stop: 09/04/22 12:48 Bismuth Subsalicylate (Bismuth Subsalicylate Liqd 236 Ml) 15 ml PO PRN PRN PRN Reason: Loose Stool Stop: 09/04/22 12:48 Hydroxyzine HCl (Hydroxyzine Hcl 25 Mg Tab) 50 mg PO HSZ PRN PRN Reason: Insomnia Stop: 09/04/22 12:48 Hydroxyzine HCl (Hydroxyzine Hcl 25 Mg Tab) 25 mg PO Q4H PRN PRN Reason: Anxiety Stop: 09/04/22 12:48 Lamotrigine (Lamotrigine 25 Mg Tab) 150 mg PO BID DEDRICK Stop: 09/07/22 20:59 Last Admin: 08/08/22 21:23 Dose: 150 mg Magnesium Hydroxide (Magnesium Hydroxide Susp 30 Ml Udc) 30 ml PO DAILY PRN PRN Reason: Constipation Stop: 09/04/22 12:48 Mirtazapine (Mirtazapine Tab 15 Mg Tab) 7.5 mg PO HS DEDRICK Stop: 09/04/22 21:59 Last Admin: 08/08/22 21:22 Dose: 7.5 mg Miscellaneous (Patient's Own Oral Contraceptive) 1 each PO HS DEDRICK Stop: 09/04/22 21:59 Last Admin: 08/08/22 21:21 Dose: 1 each Sodium Chloride (Sodium Chloride 0.65% Na Soln 45 Ml ([place])) 1 - 2 sprays NA PRN PRN PRN Reason: Nasal Dryness/Congestion Stop: 09/04/22 12:48 Trimethoprim/Sulfamethoxazole (Sulfamethoxazole/Trimethoprim Ds 800/160mg Tab) 1 tab PO Q12 DEDRICK Stop: 08/12/22 20:59 Last Admin: 08/08/22 21:22 Dose: 1 tab Venlafaxine HCl (Venlafaxine Hcl Xr 75 Mg Capxr) 75 mg PO DAILY DEDRICK Stop: 09/04/22 13:59 Last Admin: 08/08/22 08:35 Dose: 75 mg Venlafaxine HCl (Venlafaxine Hcl Xr 150 Mg Capxr) 150 mg PO DAILY DEDRICK Stop: 09/04/22 13:59 Last Admin: 08/08/22 08:35 Dose: 150 mg Mental Health & Subst Abuse Tx Psychiatrist Name of Psychiatrist: [facility] - Dr. Brooks Psychiatrist's Date Of Appointment With Psychiatric Provider: 08/10/22 Time of Appointment with Psychiatrist: 2:40 PM Psychiatric Appointment Comment: telehealth Therapist Name of Therapist: BESS Singh Therapist's Date of Therapist Appointment: 08/10/2022 Time of Therapist Appointment: 4pm Therapy Appointment Comment: telehealth Reporting Consultant Name of Reporting Consultant: None Post Discharge Appointments Primary Care Physician Name Of Family Doctor/PCP: [facility] Primary Care Provider Appointment Comment: Please follow-up with PCP as needed. Specialist Name of Specialist: JAMES AMES - Dr. Quispe Phone Number for Specialist: [phone] Date of Appointment with Specialist: 08/11/22 Time of Appointment with Specialist: 10:45 AM Specialty Appointment Comment: [address] [place] [address] Contact Information Discharge Discharge Address: [facility] [address], [place] [address]
[2022-08-09] MEDS: lamoTRIgine 25 MG TAB PO SCH ×2 (09:51→20:27)
[2022-08-09] MEDS: VENLAFAXINE HCL XR 75 MG CAPXR PO SCH (09:52)
[2022-08-09] MEDS: SULFAMETHOXAZOLE/TRIMETHOPRIM DS 800/160MG TAB PO SCH ×2 (09:52→20:28)
[2022-08-09] MEDS: VENLAFAXINE HCL XR 150 MG CAPXR PO SCH (09:53)
--- NOTE | 2022-08-09 22:29 | Discharge Summary ---
Date of Service August 09, 2022 History of Present Illness Doreen presents for psychiatric admission for worsening depression, self-harm via scratching her neck and hitting herself in the head and SI with possible plans of walking into traffic or overdosing in the context of multiple psychosocial stressors including mood changes associated with her menses/hormone fluctuations every month and conflict with her roommate. She finds she can struggle with friendships as they can feel overwhelmed "by my big emotional breakdowns and so much irrationality" and she has trouble trusting others. She skips her placebo weeks on control but even with this usually 10 days before her placebo week she becomes more depressed and two days before her placebo week she will feel suicidal with extreme irritability and hopelessness with extreme heightened sense of emotions. She feels like she will get two weeks of being able to use her strategies and her mood stabilizes but then she is thrown back into the "spiral" of depression and body aches/severe PMS with her menses. She feels "really trapped in my head" and struggles to be alone. She endorses worsening depression with hopelessness, decreased motivation with difficulty attending classes, helplessness, anhedonia, decreased energy, decreased concentration, decreased sleep hard to fall asleep ~ 6 hours per night, decreased appetite. Has frequent passive SI but lately this has been intensifying to point of some rehearsal behaviors including counting pills to see if she'd have enough to overdose. She feels like the thoughts are intrusive but she doesn't want to act on them. She also experiences a lot of anxiety symptoms including panic attacks multiple times per week. History of significant trauma with PTSD symptoms with avoidance, flashbacks, night terrors about 3-4 times per week. She is currently prescribed psychiatric medications of venlafaxine ER 225mg daily and lamictal 100mg BID. Psychiatric ROS notable for no current nor history of symptoms of marichuy, psychosis. History of hypomania vs marichuy after stopping fluoxetine the summer after she graduated from high school when she felt overly confident with excess energy, felt invincible, was very impulsive and used a lot of substances but was also self-harming. More recently in college these elevated periods of mood seemed to be triggered by cannabis use with hypersexual behaviors and increased risk taking behaviors (but also notes that this became almost a form of self- harm) with weird makeup application, excessive shopping, will dance around a lot and usually lasts a few days. History of self-harm via scratching, burning or cutting herself. Struggles with body image and sometimes restricts her eating but never with purging, excessive exercise or laxative use. Physical Exam Psychiatric Orientation: alert and oriented x 3 Apperance: appropriately dressed and appropriately groomed Eye Contact: good eye contact Motor Behavior: no abnormal motor movements Speech: normal rate/rhythm/volume of speech Affect: + depressed affect and + anxious affect; no tearful affect Mood: + depressed mood and + anxious mood Thought Process: goal directed thought process Thought Content: reality based without delusions Suicidal Thoughts: denies suicidal thoughts, denies suicidal plan and denies suicidal intent Homicidal Thoughts: denies homicidal thoughts Hallucinations: no auditory hallucinations and no visual hallucinations Cognition: recent memory grossly intact, remote memory grossly intact, attention grossly intact and language grossly intact Estimated Intelligence: consistent with education level Insight: + fair insight Judgment: + limited judgement and + fair judgement Vital Signs (Past 24 Hours) Last Vital Signs Temp 36.8 C 08/09/22 20:00 Pulse 102 H 08/09/22 06:39 Resp 16 08/09/22 06:39 BP 111/71 08/09/22 06:39 Pulse Ox 99 08/05/22 13:23 O2 Del Method Room Air 08/05/22 13:23 Principal Diagnosis Bipolar I Disorder, current episode Depressed, Severe, without Psychotic Features Psychiatric Data See daily stay summary. In short, safety was maintained and the patient was cooperative with care. Medication changes included increase of lamotrigine from 200 mg/day to 300 mg/day and addition of mirtazapine 7.5 mg for sleep. She was also started on sulfamethoxizole/trimethoprim for an apparent UTI. She tolerated these changes well. A family session was held and safety plan was completed prior to discharge. Day of Discharge Assessment Today the patient voices readiness for discharge. They note improvement in mood and deny thoughts to harm self or others. Thoughts remain organized and they are improved from admission. There is no evidence of psychosis. They agree to take mediations as prescribed and keep follow-up appointments. They are stable for discharge to outpatient level of care. Advance Directives Advance Directives Information Provided: Yes Advance Directives: No Mental Health Advance Directive: No Advance Directives on File: No Living Will: No Power of Treating Engineer Helper: No Advance Directives Reason:: Declines as Mental Health Visit. Suicide Risk Level Suicide Risk Level: Low (q15 min observation checks) Suicide Risk Level Comments: Risk Factors Assessment Male: No : Yes Do You Have Access To A Gun?: No Health Problems: No Mental Health Diagnoses: Yes Substance Use Disorders: No Previous Attempt: No Family History of Suicide: No Previous Psychiatric Hospitalization: No Protective Factors Assessment Employed: No Stable Relationships: Yes Supportive Family: Yes Good Rapport with Provider: Yes Total Time Total Time Spent: Greater Than 30 Minutes Discharge Data Lab Results 08/05/22 08/05/22 08/05/22 03:25 03:25 03:25 WBC RBC Hgb Hct MCV MCH MCHC RDW Std Deviation RDW Coeff of Melvin Plt Count MPV Immature Gran % (Auto) Neut % (Auto) Lymph % (Auto) Coos % (Auto) Eos % (Auto) Baso % (Auto) Neut # (Auto) Lymph # (Auto) Coos # (Auto) Eos # (Auto) Baso # (Auto) Immature Gran # (Auto) Sodium Potassium Chloride Carbon Dioxide Anion Gap BUN Creatinine Est Cr Clr Drug Dosing Est GFR ( Amer) Est GFR (Non-Af Amer) BUN/Creatinine Ratio Glucose Calcium Total Bilirubin AST ALT Alkaline Phosphatase Total Protein Albumin Globulin Albumin/Globulin Ratio TSH Free T4 Urine Color Yellow Urine Appearance Cloudy A Urine pH 8.0 H Ur Specific [place] 1.024 Urine Protein Trace H Urine Glucose (UA) Negative Urine Ketones Negative Urine Blood Negative Urine Nitrite Negative Urine Bilirubin Negative Urine Urobilinogen Negative Ur Leukocyte Esterase 2+ H Urine WBC (Auto) 10-30 H Urine RBC (Auto) 0-4 U Hyaline Cast (Auto) 1-5 U Epithel Cells (Auto) >30 H Urine Bacteria (Auto) 2+ H Urine Test Negative Salicylates Urine Opiates Screen Neg Ur Methadone, Qual Neg Acetaminophen Urine Barbiturates Neg Ur Phencyclidine (PCP) Neg U Amphetamin/Meth Scrn Neg MDMA (Ecstasy) Screen Neg U Benzodiazepines Scrn Neg Ur Cocaine Metabolite Neg U Marijuana (THC) Screen Neg Ethyl Alcohol mg/dL SARS-CoV-2, RNA, NAAT 08/05/22 08/05/22 08/05/22 03:48 03:48 03:48 WBC 7.79 RBC 4.13 L Hgb 12.8 Hct 37.0 MCV 89.6 MCH 31.0 MCHC 34.6 RDW Std Deviation 40.1 RDW Coeff of Melvin 12.3 Plt Count 308 MPV 9.4 Immature Gran % (Auto) 0.3 Neut % (Auto) 71.6 Lymph % (Auto) 22.3 Coos % (Auto) 5.4 Eos % (Auto) 0.1 Baso % (Auto) 0.3 Neut # (Auto) 5.58 Lymph # (Auto) 1.74 Coos # (Auto) 0.42 Eos # (Auto) 0.01 Baso # (Auto) 0.02 Immature Gran # (Auto) 0.02 Sodium 137 Potassium 3.7 Chloride 104 Carbon Dioxide 27 Anion Gap 6 BUN 17 Creatinine 0.89 Est Cr Clr Drug Dosing 83.4 Est GFR ( Amer) 108.1 Est GFR (Non-Af Amer) 93.3 BUN/Creatinine Ratio 19.1 Glucose 89 Calcium 9.5 Total Bilirubin 0.3 AST 16 ALT 7 Alkaline Phosphatase 44 Total Protein 8.2 Albumin 4.4 Globulin 3.8 Albumin/Globulin Ratio 1.2 TSH 5.831 H Free T4 0.63 Urine Color Urine Appearance Urine pH Ur Specific [place] Urine Protein Urine Glucose (UA) Urine Ketones Urine Blood Urine Nitrite Urine Bilirubin Urine Urobilinogen Ur Leukocyte Esterase Urine WBC (Auto) Urine RBC (Auto) U Hyaline Cast (Auto) U Epithel Cells (Auto) Urine Bacteria (Auto) Urine Test Salicylates Urine Opiates Screen Ur Methadone, Qual Acetaminophen Urine Barbiturates Ur Phencyclidine (PCP) U Amphetamin/Meth Scrn MDMA (Ecstasy) Screen U Benzodiazepines Scrn Ur Cocaine Metabolite U Marijuana (THC) Screen Ethyl Alcohol mg/dL SARS-CoV-2, RNA, NAAT 08/05/22 08/05/22 08/05/22 03:48 03:48 03:48 WBC RBC Hgb Hct MCV MCH MCHC RDW Std Deviation RDW Coeff of Melvin Plt Count MPV Immature Gran % (Auto) Neut % (Auto) Lymph % (Auto) Coos % (Auto) Eos % (Auto) Baso % (Auto) Neut # (Auto) Lymph # (Auto) Coos # (Auto) Eos # (Auto) Baso # (Auto) Immature Gran # (Auto) Sodium Potassium Chloride Carbon Dioxide Anion Gap BUN Creatinine Est Cr Clr Drug Dosing Est GFR ( Amer) Est GFR (Non-Af Amer) BUN/Creatinine Ratio Glucose Calcium Total Bilirubin AST ALT Alkaline Phosphatase Total Protein Albumin Globulin Albumin/Globulin Ratio TSH Free T4 Urine Color Urine Appearance Urine pH Ur Specific [place] Urine Protein Urine Glucose (UA) Urine Ketones Urine Blood Urine Nitrite Urine Bilirubin Urine Urobilinogen Ur Leukocyte Esterase Urine WBC (Auto) Urine RBC (Auto) U Hyaline Cast (Auto) U Epithel Cells (Auto) Urine Bacteria (Auto) Urine Test Salicylates < 3.0 L Urine Opiates Screen Ur Methadone, Qual Acetaminophen < 3 L Urine Barbiturates Ur Phencyclidine (PCP) U Amphetamin/Meth Scrn MDMA (Ecstasy) Screen U Benzodiazepines Scrn Ur Cocaine Metabolite U Marijuana (THC) Screen Ethyl Alcohol mg/dL < 10.0 SARS-CoV-2, RNA, NAAT NEGATIVE Hospital Course (1) Bipolar 1 disorder, depressed, severe: (2) PMDD (premenstrual dysphoric disorder): (3) Post traumatic stress disorder (PTSD): (4) Generalized anxiety disorder with panic attacks: (5) Self-harming behavior: (6) TSH elevation: (7) Urinary tract infection: Plan 08/09/22: Continue lamotrigine 150 mg BID (for mood stabilization and depressi on) Continue venlafaxine XR 225 mg daily (primarily for anxiety and panic). Continue mirtazapine 7.5 mg QHS (primarily for sleep). Continue sulfamethoxizole/trimethoprim 800/160 mg BID for 3 more days. Anticipate discharge late this evening (at least 2 hr after lamotrigine), or tomorrow AM. 08/08/22: Increase lamotrigine to 150 mg BID, with 50 mg now following 100 mg dose administered a short time ago. (While this could appear to be a very rapid rate of increase, my initial recommendation had been to increase from 200 mg/day to 300 mg/day 2 days ago). Continue venlafaxine XR 225 mg daily (primarily for anxiety and panic). Continue mirtazapine 7.5 mg QHS (primarily for sleep). Continue sulfamethoxizole/trimethoprim 800/160 mg BID for 4 more days. 08/07/22: Start SMX/TMP as planned for presumptive UTI. Will continue mirtazapine at current dose since I doubt tachyphylaxis after 2 doses. Continue lamotrigine at new dose of 100 mg QAM & 150 mg QPM, encourage further increase to 150 mg BID. Continue venlafaxine XR 225 mg daily. 08/06/22: Continue venlafaxine ER 225 mg and mirtazapine 7.5 mg. Increase lamotrigine to 100 mg QAM & 150 mg QHS. Plan to start UTI Abx tomorrow (to avoid confounding if pt reports nausea if 2 med changes made simultaneously). 08/05/2022: The patient was admitted to the [facility]) on q15 min checks (behavioral with suicide precautions) for safety. The patient will participate in group, recreational, and milieu therapies and will be offered additional individual and family sessions as clinically appropriate. -start mirtazapine 7.5mg HS -Continue venlafaxine ER 225mg -lamictal 100mg BID -Mood Disorder Questionnaire -Jimmy BPD Screen Mental Health & Subst Abuse Tx Psychiatrist Name of Psychiatrist: [facility] - Dr. Brooks Psychiatrist's Date Of Appointment With Psychiatric Provider: 08/10/22 Time of Appointment with Psychiatrist: 2:40 PM Psychiatric Appointment Comment: telehealth Therapist Name of Therapist: BESS Singh Therapist's Date of Therapist Appointment: 08/10/2022 Time of Therapist Appointment: 4pm Therapy Appointment Comment: telehealth Flask Cleaner Name of Flask Cleaner: None Post Discharge Appointments Primary Care Physician Name Of Family Doctor/PCP: [facility] Primary Care Provider Appointment Comment: Please follow-up with PCP as needed. Specialist Name of Specialist: JAMES AMES - Dr. Quispe Phone Number for Specialist: [phone] Date of Appointment with Specialist: 08/11/22 Time of Appointment with Specialist: 10:45 AM Specialty Appointment Comment: [address] [place] [address] Other #1: Name of Aftercare Appointment: [facility] Phone Number of Aftercare Appointment: [phone] Date of Aftercare Appointment: 08/11/22 Time of Aftercare Appointment: 2:00 PM Aftercare Appointment Comment: zoom link will be sent to [facility] email #2: Name of Aftercare Appointment: [facility] Phone Number of Aftercare Appointment: [phone] Date of Aftercare Appointment: 08/11/22 Time of Aftercare Appointment: 4:30 PM Aftercare Appointment Comment: A link will be sent to your email. Contact Information Discharge Discharge Address: [address] [place] [address] Discharge Plan Discharge Items Patient Disposition: Home - Self-Care Reason For Visit: MDD Discharge Diagnosis: Bipolar I Disorder, Depressed, Severe without Psychotic Features Activity: Resume your previous activity Non-emergency contact: Primary Care Provider and Psychiatrist Call non-emergency contact if: you have any medication questions and your symptoms worsen Follow-up/Referrals: [place] [Primary Care Provider] - Diet: Regular Addtl Attending Provider Instructions: SPECIAL CARE INSTRUCTIONS: 1. Follow through with your scheduled aftercare appointments. If unable to keep an appointment, please call to reschedule. 2. Take your medication only as prescribed. Medication should not be changed or stopped without the approval of your doctor. In the event of worsening symptoms or concerns about side effects, contact your doctor immediately. 3. Utilize new healthy coping skills, anger management skills, and stress management skills learned during your hospitalization. Journal feelings and process them with a support person. Identify stressors or situations that may result in relapse, deterioration or inappropriate behaviors and develop a plan to deal with those issues. 4. If your coping skills are ineffective and you are in crisis, contact your outpatient providers for direction. If unable to reach your providers, please call the [facility] CRISIS LINE AT , go to the [facility] walk-in center at [address] [place] [address], [address], [place], or go to the closest Emergency Room. 5. Avoid alcohol and un-prescribed drugs. 6. You have been provided with the Mental Health Advance Directives Pamphlet for your review. 7. Your condition is stable for discharge to outpatient level of care, but recovery is an ongoing process. Ifthoughts to harm yourself or others return, follow the safety plan developed during your stay. Planning for a safe return home includes securing weapons. Our treatment team recommends weaponsbe removed from the home until your outpatient provider reassesses your progress. In rare cases where the items themselvescannot be removed, guns and ammunitionshould be secured separatelyand keys stored by a reliable personoutside of the home. If you were admitted on an involuntary commitment, the police or other legal authorities may be involved in this process. AFTERCARE APPOINTMENTS: * Please call your insurance company prior to your scheduled appointment to confirm your aftercare providers are covered. Take your insurance information to your appointments. WHO TO CALL AND WHEN: Medical Emergencies: For questions or emergencies related to your hospital stay, please contact the Inpatient Behavioral Health Unit at [phone]. A junior underwriter is on-call 16/01 for the Behavioral Health Unit for emergencies At any time you feel your situation is an emergency, you may also call 911 immediately. Pending Studies at Discharge: No Stand-Alone Forms: [facility], Smoking Cessation Medications and DC Order Prescriptions: New sulfamethoxazole-trimethoprim [Bactrim DS] 800-160 mg Tablet 1 tab PO Q12 3 Days Qty: 6 0RF lamotrigine [Lamictal] 25 mg Tablet 150 mg PO BID 30 Days Qty: 360 0RF hydroxyzine HCl 25 mg Tablet 25 mg PO Q4H PRN (Reason: anxiety) 30 Days Qty: 90 0RF mirtazapine 15 mg Tablet 7.5 mg PO HS 30 Days Qty: 15 0RF Continued venlafaxine 75 mg capsule,extended release 24hr 75 mg PO DAILY Balziva (28) 0.4-35 mg-mcg tablet 1 tab PO DAILY venlafaxine [Effexor XR] 150 mg capsule,extended release 24hr 150 mg PO DAILY Qty: 7 0RF Discontinued lamotrigine [Lamictal] 100 mg tablet 100 mg PO BID Discharge Orders: Discharge Order (Routine); Ordered 08/09/22 Ordered By: Vince Huynh Admission Data Admit Date/Time: 08/05/22 12:13 Attending Provider: Lili Plascencia Admit Provider: Lili Plascencia Primary Care Provider: [place] Other Interventions: Discharge Summary Assessment (RN) Last Done: 08/09/22 22:43 Coding Level of Care Code 47680 D/C day mgmt > 30 min Diagnoses Bipolar 1 disorder, depressed, severe F31.4 PMDD (premenstrual dysphoric disorder) F32.81 Post traumatic stress disorder (PTSD) F43.10 Generalized anxiety disorder with panic attacks F41.1; F41.0 Self-harming behavior TSH elevation R79.89 Urinary tract infection N39.0 Time Spent (min) 50
[2022-08-09] MEDS: MIRTAZAPINE TAB 15 MG TAB PO SCH (22:35)
[2022-08-09] MEDS: PATIENT'S OWN ORAL CONTRACEPTIVE PO SCH (22:36)
== END 2022-08-09 22:57 | disposition home or self-care (01) | DRG 885 ==
LOC: ED 03:06 → 3S 12:10
DX: R79.89 Other specified abnormal findings of blood chemistry; F41.0 Panic disorder [episodic paroxysmal anxiety]; F41.1 Generalized anxiety disorder; F31.4 Bipolar disorder, current episode depressed, severe, without psychotic features; Z79.899 Other long term (current) drug therapy; F43.10 Post-traumatic stress disorder, unspecified